=== PATIENT | female | born 1990 | race African-American/Black ===

== ENCOUNTER 2018-04-01 17:17 | Emergency (ER) | payer MEDICAID ==
[~2018-04-01] VITALS: Ht 162.6 cm; Wt 104.3 kg
[2018-04-01 17:26] VITALS: BP 119/81
== END 2018-04-01 19:19 | disposition home or self-care (01) ==
LOC: ER 17:27
DX: F41.9 Anxiety disorder, unspecified (principal); F17.210 Nicotine dependence, cigarettes, uncomplicated

== ENCOUNTER 2023-08-02 18:32 | Emergency (ER) | payer MEDICAID ==
[~2023-08-02] VITALS: Ht 162.6 cm; Wt 121.0 kg
[2023-08-02 19:19] LABS: Basophils # (auto) 0 10 ^3/uL (0-0.2); Eosinophils # (auto) 0.3 10 ^3/uL (0-0.8); Hemoglobin 11.8 g/dL (12.2-16.2); Lymphocytes # (auto) 2.7 10 ^3/uL (0.4-5.4); Mean Corpuscular Volume 78.2 fL (80.0-100.0); Monocytes # (auto) 0.5 10 ^3/uL (0-1.3); Neutrophils # (auto) 4.4 10 ^3/uL (1.6-8.6)
[2023-08-02 19:20] LABS: Basophils % (auto) 0.2 % (0.0-2.0); Eosinophils % (auto) 3.7 % (0.0-7.0); Hematocrit 36.6 % (36.0-46.0); Lymphocytes % (auto) 33.9 % (10.0-50.0); Mean Corpuscular Hemoglobin 25.3 pg (28.0-32.0); Mean Corpuscular Hgb Conc. 32.3 g/dL (32.0-36.0); Monocytes % (auto) 6.7 % (0.0-12.0); Neutrophils % (auto) 55.5 % (37.0-80.0); Red Blood Cells 4.67 10^6/uL (4.0-5.20); Red Cell Distribution Width 16.5 % (11.8-14.3); White Blood Cell 7.9 10^3/uL (4.4-10.8)
[2023-08-02 19:38] LABS: Alanine Aminotransferase 15 U/L (7-40); Albumin 4.2 g/dL (3.2-4.8); Alkaline Phosphatase 50 U/L (46-116); Anion Gap 5 (5-15); Aspartate Aminotransferase 10 U/L (13-40); Blood Urea Nitrogen 8 mg/dL (9-23); Calcium 8.9 mg/dL (8.7-10.4); Carbon Dioxide 26 mmol/L (20-30); Chloride 107 mmol/L (98-107); Glucose 91 mg/dL (74-106); Magnesium 1.8 mg/dL (1.6-2.6); Potassium 4.2 mmol/L (3.5-5.1); Sodium 138 mmol/L (136-145)
[2023-08-02 19:39] LABS: Bilirubin, Total 0.3 mg/dL (0.2-1.0); Total Protein 6.8 g/dL (5.7-8.2)
[2023-08-02 20:24] LABS: Urine Bacteria NONE SEEN /hpf (None Seen); Urine Blood Negative /uL (Negative); Urine Clarity CLOUDY (Clear); Urine Color Colorless (Yellow); Urine Protein, UAD TRACE (Negative); Urine Urobilinogen Normal (Negative); Urine WBC 19 /hpf (0 - 5); Urine WBC Clumps PRESENT /hpf (None Seen)
[2023-08-02] MEDS ORDERED: ALPRAZolam 0.5 MG TAB PO ONE (21:45)
[2023-08-02] MEDS ORDERED: cloNIDine HCL 0.1 MG TAB PO ONE (21:45)
[2023-08-02 23:50] VITALS: BP 151/100; PULSE 85; RESP 18; O2SAT 97
== END 2023-08-02 23:54 | disposition home or self-care (01) ==
LOC: ER 18:32
DX: R07.89 Other chest pain (principal); F41.9 Anxiety disorder, unspecified; Z88.1 Allergy status to other antibiotic agents
CPT/HCPCS: 36415; 71045; 80053; 81001; 83735; 83880; 84484; 85025; 93005